=== PATIENT | male | born 1940 | race Caucasian/White ===

== ENCOUNTER → 2016-12-27 10:18 | Outpatient (CLI) | payer MEDICARE, OTHER | END | disposition home or self-care (01) | LOC: D.CT 10:18 | DX: M54.2 Cervicalgia (principal) ==

== ENCOUNTER → 2021-01-20 07:53 | Outpatient (CLI) | payer MEDICARE, BC ==
--- NOTE | ~2021-01-20 | EC ---
PATIENT:LATONIA FLORES DATE OF SERVICE: 01/20/21 SEX: M MEDICAL RECORD: [id number] DATE OF : 40 LOCATION:[facility] AGE OF PATIENT: 80 ADMISSION DATE: 01/20/21 REFERRING PHYSICIAN: INTERPRETING PHYSICIAN: MICHAEL MCLAUGHLIN MD ECHOCARDIOGRAM REPORT ECHO CHARGES 4 ECHO COMPLETE Date: 01/20/21 CLINICAL DIAGNOSIS: HEART MURMUR ECHOCARDIOGRAPHIC MEASUREMENTS (adult normal given) AC root (d.<3.7cm) 3.8 cm LV Septum d (<1.2 cm> 1.2 cm Valve Excursion 1.8 cm LV Septum (systole) 1.3 cm Left Atria (s.<4.0cm> 4.1 cm LVPW d(<1.2cm) 1.3 cm RV (d.<2.3cm) 3.9 cm LVPW (sytole) 1.7 cm LV diastole(<5.6CM) 5.4 cm MV E-F(>70mm/sec) cm LV systole 4.1 cm LVOT Diameter 1.6 cm MV exc.(>10mm) 1.3 cm Est.ejection fraction (50-75%) % DOPPLER: LVIT cm/sec A 91.0 cm/sec E 97.0 cm/sec LA cm/sec RVSP 45 mmHg LVOT 89 cm/sec AOP1/2T m/s Asc. Ao 101 cm/sec RVOT 60 cm/sec RA cm/sec PA 85 cm/sec AV Gradient Peak 4.08 mmHg AV Mean 2.23 mmHg AV Area 1.9 cm MV Gradient Peak 3.92 mmHg MV Mean 1.56 mmHg MV Area cm COMMENTS: Insurance Territory Manager: 2 KALLIE GOLD Disposal Operator: 3 Dr. Rhodes TAPE# PACS Pericardial Effusion N DATE OF SERVICE: Adequate 2D, color flow imaging, spectral Doppler, and M-Mode FINDINGS: Borderline LVH. LV internal dimension is normal. Wall motion is normal. EF is greater than or equal to 55%. Aortic valve is tricuspid. No evidence of stenosis by Doppler interrogation. Left atrium upper limits of normal at 4.1 cm. Mitral valve shows no prolapse. Trace to mild MR. Right side is grossly normal. Mild TR. 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
== END | disposition home or self-care (01) ==
LOC: D.HCCECHO 07:53
PROVIDERS: ATTEND Internal Medicine Cardiovascular Disease
DX: I20.9 Angina pectoris, unspecified (principal); R01.1 Cardiac murmur, unspecified